=== PATIENT | female | born 1995 | race Caucasian/White ===

== ENCOUNTER 2018-06-15 10:37 | Emergency (ER) | payer OTHER, SELFPAY ==
[~2018-06-15] VITALS: Ht 165.1 cm; Wt 76.9 kg
[2018-06-15 12:17] LABS: BASOPHILS # (AUTO) 0.04 x10^3/uL (0-0.1); BASOPHILS % (AUTO) 0 % (0-1); EOSINOPHILS % (AUTO) 1 % (1-7); LYMPHOCYTES # (AUTO) 1.46 x10^3/uL (1-3.4); LYMPHOCYTES % (AUTO) 14 % (22-44); MD NO; MEAN CORPUSCULAR HEMOGLOBIN 29.5 pg (27.0-34.8); MEAN CORPUSCULAR HGB CONC 33.2 g/dL (32.4-35.8); MEAN CORPUSCULAR VOLUME 88.7 fL (80-100); MEAN PLATELET VOLUME 8.4 fL (7.4-10.4); MONOCYTES # (AUTO) 0.52 x10^3/uL (0.2-0.8); MONOCYTES % (AUTO) 5 % (2-9); NEUTROPHILS # (AUTO) 8.06 x10^3/uL (1.8-6.8); NEUTROPHILS % (AUTO) 79 % (42-75); PLATELET COUNT 373 x10^3/uL (130-400); RED BLOOD COUNT 4.96 x10^6/uL (3.82-5.3); RED CELL DISTRIBUTION WIDTH 13.8 % (9.6-15.2)
[2018-06-15 12:27] LABS: ALANINE AMINOTRANSFERASE 18 U/L (12-78); ALBUMIN 4.2 g/dL (3.4-5.0); ANION GAP 5 mmol/L (5-15); CALCIUM 9.1 mg/dL (8.5-10.1); CHLORIDE 110 mmol/L (98-107)
[2018-06-15 12:31] LABS: ALKALINE PHOSPHATASE 89 U/L (45-117); TOTAL PROTEIN 7.1 g/dL (6.4-8.2)
--- NOTE | 2018-06-15 13:35 | NUR ---
PT TO ROOM FROM LOBBY
--- NOTE | 2018-06-15 13:47 | NUR ---
PT PRESENTS TO ED WITH C/O N/V STARTING THIS AM. PT NOTES INTERMITTENT VAG BLEEDING/CRAMPING SINCE MISCARRIAGE 05/07/18. PT DENIES BLEEDING AT THIS TIME, BUT DOES ADMIT TO UTERINE CRAMPING. PT A&OX4, RESPS EVEN AND UNLABORED. TOLERATING PO FLUIDS WITH NO N/V AT THIS TIME. PT INSTRUCTED TO PROVIDE CLEAN CATCH UA. PT STATES THAT SHE IS NOT ABLE TO VOID AT THIS TIME, DENIES URGE. PT AWARE OF NEED TO PROVIDE URINE WHEN ABLE. FAMILY AT BEDSIDE. BP AND SPO2 MONITORS IN PLACE.
[2018-06-15 14:23] LABS: CULTURE INDICATED? NO; MICROSCOPIC NOT IND
[2018-06-15 14:47] VITALS: BP 123/51
--- NOTE | 2018-06-15 14:47 | NUR ---
pt given dc instructions, pt a&o, resps even and unlabored, nadn. pt amb to dc desk with steady gait, nadn at dc.
== END 2018-06-15 14:49 | disposition home or self-care (01) ==
LOC: ED 13:59
DX: R10.2 Pelvic and perineal pain (principal); F17.200 Nicotine dependence, unspecified, uncomplicated
CPT/HCPCS: 36415; 76830; 80053; 81003; 83690; 84702; 85025; 99284

== ENCOUNTER 2019-03-28 11:39 | Emergency (ER) | payer OTHER ==
[~2019-03-28] VITALS: Ht 165.1 cm; Wt 73.5 kg
[2019-03-28] MEDS ORDERED: HYDROcodone/APAP 10/325 MG TABLET ONE (12:13)
--- NOTE | 2019-03-28 12:21 | NUR ---
PT WITH C/O LBP D/T FALLING DOWN HER STAIRS LAST NIGHT. PT HIT LOWER BACK MULTIPLE TIMES, PT DENIES FLANK PAIN OR URINARY SYMPTOMS. ERMD IN TO EVAL PT. PT MEDICATED PER ORDER. PT TO IMAGING AT THIS TIME
[2019-03-28] MEDS ORDERED: HYDROcodone/APAP 10/325 MG TABLET PO ONE (12:30)
--- NOTE | 2019-03-28 13:49 | NUR ---
THIS FLOAT RN AT BEDSIDE TO DC PT FOR PRIMARY RN, MARIE. PT AND SPOUSE VERBALIZED UNDERSTANDING TO DC INSTRUCTIONS. AMBULATORY TO CHECKOUT C STEADY GAIT.
[2019-03-28 13:50] VITALS: BP 130/74
== END 2019-03-28 13:52 | disposition home or self-care (01) ==
LOC: ED 12:58
DX: G89.11 Acute pain due to trauma (principal); M54.5 Low back pain; M54.6 Pain in thoracic spine; F17.200 Nicotine dependence, unspecified, uncomplicated; X58.XXXA Exposure to other specified factors, initial encounter; Y93.89 Activity, other specified; Y92.89 Other specified places as the place of occurrence of the external cause; Y99.8 Other external cause status
CPT/HCPCS: 72072; 72110; 99283

== ENCOUNTER 2020-02-19 14:28 | Inpatient (IN) | payer MEDICAID, OTHER ==
[~2020-02-19] VITALS: Ht 162.6 cm; Wt 70.5 kg
--- NOTE | 2020-02-19 15:57 | NUR ---
ASSUMED CARE OF PATIENT. PATIENT REPORTS FLANK PAIN. PT IS ALSO 16 WEEKS . VS STABLE. FAMILY AT BEDSIDE. PT SEEN BY JULIAN NEGRO. CALL LIGHT IN PLACE. WILL CONTINUE TO MONITOR.
[2020-02-19] MEDS ORDERED: SODIUM CHLORIDE 0.9% 1,000ML IVBOLUS ONE ×2 (16:00→18:30)
[2020-02-19] MEDS ORDERED: ONDANSETRON 2MG/ML, 2ML IVPush ONE (16:00)
[2020-02-19] MEDS ORDERED: MORPHINE SULFATE 4 MG/ML, 1ML ONE ×2 (16:03→19:02)
[2020-02-19] MEDS ORDERED: ONDANSETRON 2MG/ML, 2ML ONE (16:03)
[2020-02-19] MEDS: MORPHINE SULFATE 4 MG/ML, 1ML IVPush PRN ×2 (16:06→19:06)
[2020-02-19 16:15] LABS: MEAN CORPUSCULAR HEMOGLOBIN 28.8 pg (27.0-34.8); MEAN CORPUSCULAR HGB CONC 33.1 g/dL (32.4-35.8); MEAN PLATELET VOLUME 7.7 fL (7.4-10.4); PLATELET COUNT 306 x10^3/uL (130-400); RED BLOOD COUNT 4.13 x10^6/uL (3.82-5.3); RED CELL DISTRIBUTION WIDTH 14.1 % (9.6-15.2)
[2020-02-19 16:20] LABS: ALBUMIN 3.1 g/dL (3.4-5.0); ANION GAP 6 mmol/L (5-15); CALCIUM 8.6 mg/dL (8.5-10.1); CHLORIDE 102 mmol/L (98-107)
[2020-02-19 16:39] LABS: ALANINE AMINOTRANSFERASE 19 U/L (12-78); ALKALINE PHOSPHATASE 89 U/L (45-117); BILIRUBIN,TOTAL 0.7 mg/dL (0.2-1.0); CREATININE 0.53 mg/dL (0.55-1.02); TOTAL PROTEIN 6.8 g/dL (6.4-8.2)
--- NOTE | 2020-02-19 16:58 | NUR ---
PT WENT TO CT
--- NOTE | 2020-02-19 17:04 | NUR ---
Task RN: kailee collected-sent to lab
[2020-02-19] MEDS ORDERED: OMNIPAQUE 350 MG/ML, 75ML BOTTLE ONE (17:18)
[2020-02-19 17:34] LABS: MICROSCOPIC INDICATED
[2020-02-19 17:54] LABS: MD YES
[2020-02-19 17:55] LABS: BAND#(MANUAL) 2.52 x10^3/uL; BANDS%(MANUAL) 12 % (0-7); LYMPH#(MANUAL) 1.68 x10^3/uL (1-3.4); LYMPHS% (MANUAL) 8 % (22-44); MONOS#(MANUAL) 1.47 x10^3/uL (0.3-2.7); MONOS% (MANUAL) 7 % (2-9); SEG#(MANUAL) 15.33 x10^3/uL (1.8-6.8); SEGS% (MANUAL) 73 % (42-75)
[2020-02-19 17:56] LABS: <PLATELET ESTIMATE> ADEQUATE; <PLT MORPHOLOGY> NORMAL PLT MORPH; <RBC MORPHOLOGY> NORMAL
--- NOTE | 2020-02-19 18:16 | NUR ---
LAB IN ROOM DRAWING BLOOD CULTURES
[2020-02-19] MEDS ORDERED: ACETAMINOPHEN 500 MG TABLET ONE (18:27)
[2020-02-19] MEDS ORDERED: CEFTRIAXONE PMX 1GM/50ML 50 ML ONE (18:27)
[2020-02-19] MEDS ORDERED: SODIUM CHLORIDE FLUSH 10ML SYR IVF ONE (18:30)
[2020-02-19] MEDS ORDERED: ACETAMINOPHEN 500 MG TABLET PO ONE (18:30)
[2020-02-19] MEDS ORDERED: CEFTRIAXONE PMX 1GM/50ML 50 ML IVPB ONE (18:30)
--- NOTE | 2020-02-19 18:31 | NUR ---
DR DC IN ROOM
--- NOTE | 2020-02-19 19:39 | NUR ---
PT AMBULATE TO BATHROOM. PT NOW RESTING IN ROOM. VS STABLE. FAMILY AT BEDSIDE. CALL LIGHT IN PLACE. WILL CONTINUE TO MONITOR.
--- NOTE | 2020-02-19 19:49 | NUR ---
DR DC AWARE OF VS
--- NOTE | 2020-02-19 19:57 | NUR ---
Report elton to GARY Guardado for lunch
[2020-02-19] MEDS ORDERED: SODIUM CHLORIDE FLUSH 10ML SYR IVF PRN (20:30)
--- NOTE | 2020-02-19 20:39 | NUR ---
HOSPITALIST IN ROOM
[2020-02-19] MEDS: LACTATED RINGERS 1,000 ML IV SCH (21:00)
[2020-02-19] MEDS ORDERED: ACETAMINOPHEN 500 MG TABLET PO PRN (21:00)
[2020-02-19] MEDS ORDERED: ONDANSETRON ODT 4 MG PO PRN (21:00)
--- NOTE | 2020-02-19 21:11 | NUR ---
pt resting in room. regular resp. no acute distress noted. will continue to monitor.
[2020-02-19] MEDS ORDERED: LACTATED RINGERS 1,000 ML IVBOLUS ONE (22:00)
--- NOTE | 2020-02-19 22:00 | NUR ---
PT RESTING IN ROOM. REGULAR RESP. NO ACUTE DISTRESS NOTED. CALL LIGHT IN PLACE. WILL CONTINUE TO MONITOR.
[2020-02-20 00:08] VITALS: BP 114/72
[2020-02-20] MEDS: MORPHINE SULFATE 4 MG/ML, 1ML IVPush PRN ×2 (00:15→06:23)
[2020-02-20 00:35] VITALS: BP 114/72
[2020-02-20] MEDS ORDERED: HYDROmorphone 1 MG/ML, 1ML INJ IV PRN (02:30)
[2020-02-20 06:47] LABS: BASOPHILS % (AUTO) 0 % (0-1); EOSINOPHILS % (AUTO) 0 % (1-7); LYMPHOCYTES % (AUTO) 6 % (22-44); MEAN CORPUSCULAR HEMOGLOBIN 30.3 pg (27.0-34.8); MEAN CORPUSCULAR HGB CONC 34.5 g/dL (32.4-35.8); MEAN PLATELET VOLUME 7.5 fL (7.4-10.4); MONOCYTES % (AUTO) 10 % (2-9); NEUTROPHILS % (AUTO) 84 % (42-75); PLATELET COUNT 292 x10^3/uL (130-400); RED BLOOD COUNT 3.84 x10^6/uL (3.82-5.3); RED CELL DISTRIBUTION WIDTH 13.9 % (9.6-15.2)
[2020-02-20 06:55] LABS: ANION GAP 8 mmol/L (5-15); CALCIUM 8.2 mg/dL (8.5-10.1); CHLORIDE 108 mmol/L (98-107); CREATININE 0.49 mg/dL (0.55-1.02)
[2020-02-20 07:11] VITALS: BP 129/72
[2020-02-20 07:38] LABS: MD SCAN
[2020-02-20] MEDS: LACTATED RINGERS 1,000 ML IV SCH (08:09)
[2020-02-20] MEDS ORDERED: PRENATAL VIT/IRON/FA 1 EACH TABLET PO SCH (09:00)
[2020-02-20] MEDS ORDERED: CEFTRIAXONE PMX 1GM/50ML 50 ML IV SCH (15:00)
== END 2020-02-20 08:55 | disposition left against medical advice (07) | DRG 832 ==
LOC: ED 18:44 → EDIP 20:08 → 5SO 23:28
PROVIDERS: ADMIT Family Medicine; ATTEND Family Medicine
DX: O23.02 Infections of kidney in pregnancy, second trimester (principal); N12 Tubulo-interstitial nephritis, not specified as acute or chronic; O99.322 Drug use complicating pregnancy, second trimester; D72.829 Elevated white blood cell count, unspecified; Z88.8 Allergy status to other drugs, medicaments and biological substances; F11.10 Opioid abuse, uncomplicated; F17.200 Nicotine dependence, unspecified, uncomplicated; Z3A.16 16 weeks gestation of pregnancy
CPT/HCPCS: 36415; 71275; 76770; 76815; 80048; 80053; 81001; 83605; 84702; 85025; 85379; 87040; 87077; 87086; 87186; 93005; G0378; J0696; J1170; J2405; Q9967; J2270; J7030; J7120; Q0177